=== PATIENT | female | born 1980 | race Caucasian/White ===

== ENCOUNTER 2020-11-04 19:58 | Emergency (ER) | payer OTHER ==
[2020-11-04] MEDS ORDERED: CYCLOBENZAPRINE10 MG PO (21:56)
[2020-11-04] MEDS ORDERED: NAPROSYN500 MG PO (21:56)
== END 2020-11-04 22:46 | disposition home or self-care (01) ==
LOC: ER1 19:58
DX: S13.4XXA Sprain of ligaments of cervical spine, initial encounter (principal); S23.3XXA Sprain of ligaments of thoracic spine, initial encounter; S46.912A Strain of unspecified muscle, fascia and tendon at shoulder and upper arm level, left arm, initial encounter; E11.40 Type 2 diabetes mellitus with diabetic neuropathy, unspecified; Z87.19 Personal history of other diseases of the digestive system; V49.40XA Driver injured in collision with unspecified motor vehicles in traffic accident, initial encounter; Y92.410 Unspecified street and highway as the place of occurrence of the external cause
CPT/HCPCS: 71045; 72070; 72125; 73030; 99284